=== PATIENT | female | born 1985 | race Caucasian/White ===

== ENCOUNTER 2016-11-26 11:31 | Emergency (ER) | payer SELFPAY ==
[~2016-11-26] VITALS: Ht 182.9 cm; Wt 104.5 kg
[~2016-11-26 11:31] MED LIST: BUSP30TA PO; IBUP800 PO; PENI500T PO; PROZ40CA PO; TRAZ50TA4 PO
[2016-11-26 11:32] VITALS: BP 136/77; PULSE 87; RESP 18; TEMP 97.7; O2SAT 98
[2016-11-26] MEDS ORDERED: PROZ40CA PO (11:58)
[2016-11-26] MEDS ORDERED: ROBA750T PO (12:09)
[2016-11-26] MEDS ORDERED: NAPR500T PO (12:09)
--- NOTE | 2016-11-26 12:10 | PD ---
HPI Chief Complaint: Back/ Neck Pain or Injury Time Seen by Provider: 12:09 Travel History International Travel<30 days: No Contact w/Intl Traveler<30days: No Traveled to known affect area: No History of Present Illness HPI 31-year-old female presents to the emergency department for evaluation of lower back pain. Patient states that 6 days ago she was attempting to hang up a heavy mirror on the wall of her office within the mirror started to slide and fall and she bent to catch it. States that since this occurred she has had pain in her right lower back with tightness in her left lower back. Describes it as a sharp pain. Pain is aggravated with movement. Improved with lying flat. States she has tried topical analgesics, heating pad, stretches and massage without improvement of symptoms. Denies fever, chills, nausea, vomiting , numbness or tingling, weakness, saddle anesthesia, bowel or bladder incontinence. Denies , last menstrual period was 3 weeks ago. PFSH Past Medical History Hx Anticoagulant Therapy: No Anxiety: Yes Depression: Yes Cardiovascular Problems: No Chemotherapy: No Cerebrovascular Accident: No Diabetes: No Diminished Hearing: No Musculoskeletal: Yes (2 HERNIATED DISCS) Respiratory: No Tetanus Vaccination: > 5 Years ?: Unknown : 1 Para: 2 Past Surgical History Section: Yes Hysterectomy: No Other Surgery: Yes () Social History Alcohol Use: Yes (OCCASIONALLY) Tobacco Use: Yes (1 PPD) Substance Use: Yes (marijuana) Allergies-Medications (Allergen,Severity, Reaction): Coded Allergies: Monistat 7 (Verified Allergy, Intermediate, Rash, 11/26/16) Reported Meds & Prescriptions Reported Meds & Active Scripts Active Naproxen 500 Mg Tab 500 Mg PO BID 7 Days Robaxin (Methocarbamol) 750 Mg Tab 750 Mg PO QID Reported Prozac (Fluoxetine HCl) 40 Mg Cap 80 Mg PO DAILY Review of Systems Except as stated in HPI: all other systems reviewed are Neg Physical Exam Narrative GENERAL: Well-nourished and well-developed pleasant patient in no acute distress who is nontoxic appearing. SKIN: Warm and dry. HEAD: Normocephalic and atraumatic. EYES: No injection, drainage, or hyphema noted. PERRLA. EOMI. ENT: No nasal drainage noted. Oropharynx is clear. NECK: Supple and the trachea is midline. CARDIOVASCULAR: Regular rate and rhythm. RESPIRATORY: Breath sounds are equal bilaterally with no accessory muscle use, wheezing, rhonchi, or crackles. MUSCULOSKELETAL: No obvious deformities, swelling, cyanosis, or ecchymosis is present throughout the upper and lower extremities. Patient has full range of motion without any signs of neurovascular compromise. Strength 5/5 upper and lower extremities equal bilaterally. SLR positive bilaterally. BACK: Bilateral paraspinal lumbar muscle tenderness. Nontender obvious deformities, midline bony point tenderness, or crepitus noted throughout the thoracic and lumbar vertebrae. NEUROLOGICAL: Awake, alert, and oriented. Normal speech and gait. Cranial nerves are grossly intact. Data Data Last Documented VS Vital Signs Date Time Temp Pulse Resp B/P Pulse Ox O2 Delivery O2 Flow Rate FiO2 11/26/16 11:32 97.7 87 18 136/77 98 Orders Ketorolac Inj (Toradol Inj) (11/26/16 12:15) Orphenadrine Inj (Norflex Inj) (11/26/16 12:15) MDM Medical Decision Making Medical Screen Exam Complete: Yes Emergency Medical Condition: Yes Differential Diagnosis Muscle strain versus muscle spasm versus discogenic pain versus herniated disc Narrative Course 31-year-old female presents to the emergency department for evaluation of low back pain for 6 days. Patient is afebrile, vital signs are stable. The patient bent to catch a mirror which is how she injured her back. She has no midline bony point tenderness and no focal neurologic deficits. Therefore I feel no imaging is indicated at this time. This is a muscle strain. Patient will be treated with Toradol 60 mg IM and Norflex 60 mg IM here in the ED and she'll be discharged with NSAIDs and muscle relaxers. Advised follow-up with her PCP. Patient verbalizes understanding and agreement with treatment plan. Diagnosis Primary Impression: Acute low back pain Qualified Code: M54.5 - Acute bilateral low back pain without sciatica Patient Instructions: Acute Low Back Pain (ED), General Instructions Additional Instructions: Take medications as prescribed with food and a full glass of water. Do not take Robaxin with alcohol or while driving. Follow-up with your Primary Care Physician. Return to the ED for any acute worsening of symptoms. Med/Other Pt SpecificInfo: Prescription(s) given Scripts Naproxen 500 Mg [id number] Mg PO BID 7 Days Ref 0 Prov:Nii Tucker MD 11/26/16 Methocarbamol (Robaxin)750 Mg [id number] Mg PO QID #30 TAB Ref 0 Prov:iNi Tucker MD 11/26/16 Disposition: 01 DISCHARGE HOME Condition: Stable Macarena Kaur Nov 26, 2016 12:10
[2016-11-26] MEDS ORDERED: ORPHENADRINE INJ 60 MG/2 ML AMP IM ONE (12:15)
[2016-11-26] MEDS ORDERED: KETOROLAC TROMETHAMINE 60 MG/2 ML (IM) VIAL IM ONE (12:15)
== END 2016-11-26 12:31 | disposition home or self-care (01) ==
LOC: NEPB 11:31
DX: M54.5 Low back pain (principal); F32.9 Major depressive disorder, single episode, unspecified
CPT/HCPCS: 96372; 99283; J1885; J2360

== ENCOUNTER 2017-02-10 17:27 | Emergency (ER) | payer SELFPAY ==
[~2017-02-10] VITALS: Ht 182.9 cm; Wt 107.0 kg
[~2017-02-10 17:27] MED LIST changes: -BUSP30TA PO; -IBUP800 PO; +NAPR500T PO; -PENI500T PO; +ROBA750T PO; -TRAZ50TA4 PO
[2017-02-10 17:28] VITALS: BP 136/82; PULSE 88; RESP 20; TEMP 98.4; O2SAT 97
== END 2017-02-10 20:30 | disposition left against medical advice (07) ==
LOC: NED 17:27
DX: R10.9 Unspecified abdominal pain (principal)
CPT/HCPCS: 99281

== ENCOUNTER 2017-04-11 19:39 | Emergency (ER) | payer SELFPAY ==
[~2017-04-11] VITALS: Ht 182.9 cm; Wt 107.0 kg
[2017-04-11 19:41] VITALS: BP 172/87; PULSE 77; RESP 16; TEMP 98.3; O2SAT 97
--- NOTE | 2017-04-11 20:00 | PD ---
Physical Exam Date Seen by Provider: April 11, 2017 Time Seen by Provider: 19:57 Narrative 32 yo female that presents to the ED for evaluation of head injury. patient states that she accidentally knock herself on the head and possibly LOC by hitting her head on a Van. This happened today. Has a BECERRA. No other injuries. Vitals sign stable. Patient awaiting bed placement. Data Data Last Documented VS Vital Signs Date Time Temp Pulse Resp B/P Pulse Ox O2 Delivery O2 Flow Rate FiO2 04/11/17 19:48 16 04/11/17 19:41 98.3 77 172/87 97 Room Air [facility] Medical Record Reviewed: Yes Supervised Visit with AMANDA: No Gilberto Simental April 11, 2017 20:00
--- NOTE | 2017-04-11 21:26 | RADRPT ---
EXAM DATE/TIME: 04/11/2017 20:57 [place] COMPARISON: No previous studies available for comparison. INDICATIONS : Trauma, hit head today. RADIATION DOSE: 41.72 CTDIvol (mGy) MEDICAL HISTORY : None SURGICAL HISTORY : section. ENCOUNTER: Initial ACUITY: 1 day PAIN SCALE: 3/10 LOCATION: cranial TECHNIQUE: Multiple contiguous axial images were obtained of the head. Using automated exposure control and adj ustment of the mA and/or kV according to patient size, radiation dose was kept as low as reasonably a chievable to obtain optimal diagnostic quality images. FINDINGS: CEREBRUM: The ventricles are normal for age. No evidence of midline shift, mass lesion, hemorrhage or acute in farction. No extra-axial fluid collections are seen. POSTERIOR FOSSA: The cerebellum and brainstem are intact. The 4th ventricle is midline. The cerebellopontine angle i s unremarkable. EXTRACRANIAL: The visualized portion of the orbits is intact. SKULL: The calvaria is intact. No evidence of skull fracture. CONCLUSION: Normal examination. French Bojorquez Jr., MD on April 11, 2017 at 21:24 Board Certified Radiologist. This report was verified electronically.
[2017-04-11] MEDS ORDERED: ZOFR4TAB3 SL (22:05)
--- NOTE | 2017-04-11 22:05 | PD ---
HPI . Head injury Chief Complaint: Head Injury Time Seen by Provider: 22:01 Travel History International Travel<30 days: No Contact w/Intl Traveler<30days: No Traveled to known affect area: No History of Present Illness HPI Patient presents complaining with headache, nausea and blurred vision. She struck her head 4 days ago and she states that she was getting into a van and hit her head on the door frame of the hand. She is pretty sure that she had a loss of consciousness. She has had symptoms of headache, nausea and blurred vision since that time. Does have waxed and waned. She states that the headache is really not very bad. She is taking Tylenol with some relief. She states that her family was very concerned and insisted that she come to the hospital for evaluation. PFSH Past Medical History Hx Anticoagulant Therapy: No Anxiety: Yes Depression: Yes Cardiovascular Problems: No Chemotherapy: No Cerebrovascular Accident: No Diabetes: No Diminished Hearing: No Musculoskeletal: Yes (2 HERNIATED DISCS) Respiratory: No Tetanus Vaccination: > 5 Years Influenza Vaccination: No ?: Not LMP: 26 DAYS AGO : 1 Para: 2 Past Surgical History Section: Yes Hysterectomy: No Other Surgery: Yes () Social History Alcohol Use: Yes (OCCASIONALLY) Tobacco Use: Yes (1 PPD) Substance Use: Yes (marijuana) Allergies-Medications (Allergen,Severity, Reaction): Coded Allergies: Monistat 7 (Verified Allergy, Intermediate, Rash, 04/11/17) Reported Meds & Prescriptions Reported Meds & Active Scripts Active Naproxen 500 Mg Tab 500 Mg PO BID 7 Days Robaxin (Methocarbamol) 750 Mg Tab 750 Mg PO QID Reported Prozac (Fluoxetine HCl) 40 Mg Cap 80 Mg PO DAILY Review of Systems Except as stated in HPI: all other systems reviewed are Neg Eyes: Positive: Blurred Vision HENT: Positive: Headaches Gastrointestinal: Positive: Nausea Physical Exam Narrative GENERAL: Awake and alert and in no acute distress. SKIN: Warm and dry. HEAD: Atraumatic. Normocephalic. EYES: Pupils equal and round. Extraocular movements are intact. Pupils are reactive to light. NECK: Trachea midline. Neck is nontender. CARDIOVASCULAR: Regular rate and rhythm. RESPIRATORY: No accessory muscle use. MUSCULOSKELETAL: No obvious deformities. No edema. NEUROLOGICAL: Awake and alert. No obvious cranial nerve deficits. Motor grossly within normal limits. Normal speech. PSYCHIATRIC: Appropriate mood and affect; insight and judgment normal. Data Data Last Documented VS Vital Signs Date Time Temp Pulse Resp B/P Pulse Ox O2 Delivery O2 Flow Rate FiO2 04/11/17 19:48 16 04/11/17 19:41 98.3 77 172/[address] Brain W/O Iv Contrast(Rout) (04/11/17 20:31) MDM Medical Decision Making Medical Screen Exam Complete: Yes Emergency Medical Condition: Yes Differential Diagnosis My differential diagnosis of head trauma includes but is not limited to scalp contusion, concussion, intracerebral hemorrhage. Narrative Course Patient presents with signs and symptoms compatible with a concussion. Her head CT is negative. Diagnosis Primary Impression: Concussion Qualified Code: S06.0X1A - Concussion, with LOC of 30 min or less, initial encounter Patient Instructions: Concussion (DC), General Instructions Med/Other Pt SpecificInfo: Prescription(s) given Scripts Ondansetron Odt (Zofran Odt)4 Mg Tab4 Mg SL Q6HR PRN (Nausea/Vomiting) #30 TAB Ref 0 Prov:Guillermina Gutierrez MD 04/11/17 Disposition: 01 DISCHARGE HOME Condition: Stable Guillermina Gutierrez MD April 11, 2017 22:05
== END 2017-04-11 22:13 | disposition home or self-care (01) ==
LOC: NEPD 19:39
DX: S06.0X1A Concussion with loss of consciousness of 30 minutes or less, initial encounter (principal); R11.0 Nausea; H53.8 Other visual disturbances; F17.200 Nicotine dependence, unspecified, uncomplicated; Z86.59 Personal history of other mental and behavioral disorders; Z87.39 Personal history of other diseases of the musculoskeletal system and connective tissue; W22.09XA Striking against other stationary object, initial encounter
CPT/HCPCS: 70450; 99284

== ENCOUNTER 2018-02-23 14:53 | Emergency (ER) | payer BC ==
[~2018-02-23] VITALS: Ht 182.9 cm; Wt 100.0 kg
[~2018-02-23 14:53] MED LIST changes: -NAPR500T PO; +NAPR500T2 PO; +ZOFR4TAB3 SL
[2018-02-23 14:59] VITALS: BP 151/81; PULSE 88; RESP 16; TEMP 98.4; O2SAT 98
[2018-02-23] MEDS ORDERED: LITH300T PO (16:02)
[2018-02-23] MEDS ORDERED: BUSP30TA PO (16:02)
[2018-02-23] MEDS ORDERED: STRA80CA PO (16:02)
[2018-02-23] MEDS ORDERED: TRAZ100T10 PO (16:02)
[2018-02-23] MEDS ORDERED: NEUR800T PO (16:02)
--- NOTE | 2018-02-23 16:08 | PD ---
HPI Chief Complaint: Psychiatric Symptoms Time Seen by Provider: 15:51 Travel History International Travel<30 days: No Contact w/Intl Traveler<30days: No Traveled to known affect area: No History of Present Illness HPI 32-year-old female with history of bipolar disorder, presents emergency department stating she "feels out of control". She states that all of her buttons have been pushed today. She denies suicidal or homicidal ideation but feels that she needs to be seen. She denies recent medical issues. She does take lithium, but has not ever had a level checked. She states she has been compliant with her meds, except for Strattera which is too expensive. She is allergic to miconazole. PFSH Past Medical History Hx Anticoagulant Therapy: No ADHD: Yes Bipolar Disorder: Yes Anxiety: Yes Depression: Yes Cardiovascular Problems: No Chemotherapy: No Cerebrovascular Accident: No Diabetes: No Diminished Hearing: No Musculoskeletal: Yes (2 HERNIATED DISCS) Respiratory: No Immunizations Current: Yes ?: Not LMP: FEBRUARY 2018 : 1 Para: 2 Past Surgical History Section: Yes Hysterectomy: No Other Surgery: Yes () Social History Alcohol Use: Yes (OCCASIONALLY) Tobacco Use: No Substance Use: Yes (marijuana) Allergies-Medications (Allergen,Severity, Reaction): Coded Allergies: miconazole (Verified Allergy, Intermediate, Rash, 02/23/18) Reported Meds & Prescriptions Reported Meds & Active Scripts Active Reported Trazodone (Trazodone HCl) 100 Mg Tablet 100 Mg PO HS Strattera (Atomoxetine) 80 Mg Cap 80 Mg PO DAILY [place] Carbonate ER ([place] Carbonate) 300 Mg Tab 300 Mg PO DAILY Buspirone (Buspirone HCl) 30 Mg Tab 30 Mg PO BID Neurontin (Gabapentin) 800 Mg Tab 900 Mg PO DAILY Prozac (Fluoxetine HCl) 40 Mg Cap 60 Mg PO DAILY Review of Systems Except as stated in HPI: all other systems reviewed are Neg General / Constitutional: No: Fever Eyes: No: Visual changes HENT: No: Headaches Cardiovascular: No: Chest Pain or Discomfort Respiratory: No: Shortness of Breath Gastrointestinal: No: Abdominal Pain Genitourinary: No: Dysuria Musculoskeletal: No: Pain Skin: No Rash Neurologic: No: Weakness Psychiatric: Positive: Anxiety, Depression, Mood Disorder, No: Suicidal Ideations, Disorder of Thought, Substance Abuse, Homicidal Ideation Endocrine: No: Polydipsia Hematologic/Lymphatic: No: Easy Bruising Physical Exam Narrative GENERAL: Patient appears visibly upset, somewhat tearful. SKIN: Warm and dry. Normal color. Normal turgor. No signs of trauma HEAD: Atraumatic. Normocephalic. EYES: Pupils equal and round. No scleral icterus. No injection or drainage. ENT: No nasal bleeding or discharge. Mucous membranes pink and moist. Pharynx is clear. Airways patent. NECK: Trachea midline. Supple nontender. CARDIOVASCULAR: Regular rate and rhythm. RESPIRATORY: No accessory muscle use. Clear to auscultation. Breath sounds equal bilaterally. GASTROINTESTINAL: Abdomen soft, non-tender, nondistended. Hepatic and splenic margins not palpable. MUSCULOSKELETAL: Extremities without clubbing, cyanosis, or edema. No obvious deformities. NEUROLOGICAL: Awake and alert. No obvious cranial nerve deficits. Motor grossly within normal limits. Five out of 5 muscle strength in the arms and legs. Normal speech. Data Data Last Documented VS Vital Signs Date Time Temp Pulse Resp B/P (MAP) Pulse Ox O2 Delivery O2 Flow Rate FiO2 02/23/18 14:59 98.4 88 16 151/81 (104) 98 Orders Orders Complete Blood Count With Diff (02/23/18 16:03) Comprehensive Metabolic Panel (02/23/18 16:03) Thyroid Stimulating Hormone (02/23/18 16:03) Urinalysis - C+S If Indicated (02/23/18 16:03) Ed Urine Pregnancytest Poc (02/23/18 16:03) Psych Screen (02/23/18 16:03) [place] (Li) (02/23/18 16:03) Drug Screen, Random Urine (02/23/18 16:03) Alcohol (Ethanol) (02/23/18 16:03) Lorazepam (Ativan) (02/23/18 16:15) [facility] Medical Decision Making Medical Screen Exam Complete: Yes Emergency Medical Condition: Yes Medical Record Reviewed: Yes Differential Diagnosis Bipolar disorder. Depression. Mood disorder. Anger management issues. Narrative Course Patient appears medically stable at time of exam. Psychiatric labs ordered per protocol in addition to urine , and lithium level. Patient is given lorazepam 1 mg p.o. now. Patient is medically clear for psychiatric evaluation. Psych screen is ordered. Condition: Stable Fadi Leiva Feb 23, 2018 16:08
[2018-02-23] MEDS ORDERED: LORazepam 1 MG TAB PO ONE (16:15)
[2018-02-23 16:57] LABS: AUTOMATED NEUTROPHIL # 7.2 TH/MM3 (1.8-7.7); BASOPHIL % 0.4 % (0.0-2.0); EOSINOPHIL # 0.5 TH/MM3 (0-0.4); EOSINOPHIL % 4.6 % (0.0-4.0); HEMATOCRIT 37.3 % (35.0-46.0); HEMOGLOBIN 13.3 GM/DL (11.6-15.3); LYMPH % 19.5 % (9.0-44.0); MEAN CELL VOLUME 88.4 FL (80.0-100.0); MEAN CORPUSCULAR HEMOGLOBIN 31.5 PG (27.0-34.0); MEAN CORPUSCULAR HGB CONC 35.6 % (32.0-36.0); MEAN PLATELET VOLUME 9.6 FL (7.0-11.0); MONO % 7.1 % (0.0-8.0); MONOCYTE # 0.7 TH/MM3 (0-0.9); NEUT % 68.4 % (16.0-70.0); PLATELET COUNT 284 TH/MM3 (150-450); RED BLOOD COUNT 4.22 MIL/MM3 (4.00-5.30); RED CELL DISTRIBUTION WIDTH 12.6 % (11.6-17.2); WHITE BLOOD COUNT 10.5 TH/MM3 (4.0-11.0)
[2018-02-23 17:11] LABS: ALBUMIN 4.2 GM/DL (3.4-5.0); AST (GOT) 18 U/L (15-37); BICARBONATE 26.5 MEQ/L (21.0-32.0); BLOOD UREA NITROGEN 11 MG/DL (7-18); CHLORIDE 108 MEQ/L (98-107); CREATININE 0.73 MG/DL (0.50-1.00); GLOMERULAR FILTRATION RATE 93 ML/MIN (>89); GLUCOSE,RANDOM 84 MG/DL (74-106); SODIUM (NA) 140 MEQ/L (136-145)
[2018-02-23 17:12] LABS: ALT (GPT) 28 U/L (10-53)
[2018-02-23 17:22] LABS: ALKALINE PHOSPHATASE 56 U/L (45-117); TOTAL BILIRUBIN ADULT 0.7 MG/DL (0.2-1.0); TOTAL PROTEIN 7.2 GM/DL (6.4-8.2)
--- NOTE | 2018-02-23 20:14 | PD ---
Data Data Last Documented VS Vital Signs Date Time Temp Pulse Resp B/P (MAP) Pulse Ox O2 Delivery O2 Flow Rate FiO2 02/23/18 14:59 98.4 88 16 151/81 (104) 98 Orders Orders Complete Blood Count With Diff (02/23/18 16:03) Comprehensive Metabolic Panel (02/23/18 16:03) Thyroid Stimulating Hormone (02/23/18 16:03) Urinalysis - C+S If Indicated (02/23/18 16:03) Ed Urine Pregnancytest Poc (02/23/18 16:03) Psych Screen (02/23/18 16:03) [place] (Li) (02/23/18 16:03) Drug Screen, Random Urine (02/23/18 16:03) Alcohol (Ethanol) (02/23/18 16:03) Lorazepam (Ativan) (02/23/18 16:15) Labs Laboratory Tests Test 02/23/18 16:10 02/23/18 16:20 Urine Opiates Screen POS Urine Barbiturates Screen NEG Urine Amphetamines Screen NEG Urine Benzodiazepines Screen NEG Urine Cocaine Screen NEG Urine Cannabinoids Screen POS White Blood Count 10.5 TH/MM3 Red Blood Count 4.22 MIL/MM3 Hemoglobin 13.3 GM/DL Hematocrit 37.3 % Mean Corpuscular Volume 88.4 FL Mean Corpuscular Hemoglobin 31.5 PG Mean Corpuscular Hemoglobin Concent 35.6 % Red Cell Distribution Width 12.6 % Platelet Count 284 TH/MM3 Mean Platelet Volume 9.6 FL Neutrophils (%) (Auto) 68.4 % Lymphocytes (%) (Auto) 19.5 % Monocytes (%) (Auto) 7.1 % Eosinophils (%) (Auto) 4.6 % Basophils (%) (Auto) 0.4 % Neutrophils # (Auto) 7.2 TH/MM3 Lymphocytes # (Auto) 2.0 TH/MM3 Monocytes # (Auto) 0.7 TH/MM3 Eosinophils # (Auto) 0.5 TH/MM3 Basophils # (Auto) 0.0 TH/MM3 CBC Comment DIFF FINAL Differential Comment Blood Urea Nitrogen 11 MG/DL Creatinine 0.73 MG/DL Random Glucose 84 MG/DL Total Protein 7.2 GM/DL Albumin 4.2 GM/DL Calcium Level 9.0 MG/DL Alkaline Phosphatase 56 U/L Aspartate Amino Transf (AST/SGOT) 18 U/L Alanine Aminotransferase (ALT/SGPT) 28 U/L Total Bilirubin 0.7 MG/DL Sodium Level 140 MEQ/L Potassium Level 3.7 MEQ/L Chloride Level 108 MEQ/L Carbon Dioxide Level 26.5 MEQ/L Anion Gap 6 MEQ/L Estimat Glomerular Filtration Rate 93 ML/MIN Thyroid Stimulating Hormone 3rd Gen 1.140 uIU/ML [place] Level 0.1 MEQ/L Ethyl Alcohol Level LESS THAN 3 MG/DL MDM Supervised Visit with AMANDA: Yes Narrative Course I, Dr. Lanier, have reviewed the advance practice practitioner's documentation and am in agreement, met with the patient face to face, made the diagnosis, and the medical decision making was done by me. *My assessment and Findings: The nurse asked me to come evaluate this patient. She is decided that she did not want to stay for psychiatric evaluation and wanted to leave. She did come voluntary. She denies any suicidal ideation to me and to the same to YORDAN Aponte earlier. She is able to hold a rational conversation. She does seem anxious. However I do not think she is a danger to herself. There is no indication of that. Ironically she waited all this time until there is now a psychiatric J pot bed available for but she refuses and is leaving. We discussed her medical workup. She does have a very low lithium level of 0.1. She reports compliance. I advised her to follow-up with her physician and return if she changes her mind or worsens Diagnosis Primary Impression: Bipolar 1 disorder with moderate haley Additional Impression: Long-term current use of lithium Additional Instruction: The patient was advised to follow up with their physician and return if they worsen. Med/Other Pt SpecificInfo: Other Disposition: 01 DISCHARGE HOME Condition: Stable Cristopher Lanier MD Feb 23, 2018 20:13
[2018-02-24 01:23] LABS: BILIRUBIN, URINE NEG (NEG); BLOOD, URINE NEG (NEG); GLUCOSE,URINE NEG (NEG); KETONE, URINE NEG (NEG); MUCUS URINE FEW /lpf (OCC); NITRITE,URINE NEG (NEG); SQUAMOUS EPITHELIAL CELL URINE 4 /hpf (0-5); URINE COLOR YELLOW (YELLW/STRAW); URINE LEUKOCYTE ESTERASE NEG (NEG)
== END 2018-02-23 20:20 | disposition home or self-care (01) ==
LOC: NEPD 14:53
DX: F31.9 Bipolar disorder, unspecified (principal); F12.90 Cannabis use, unspecified, uncomplicated; Z79.899 Other long term (current) drug therapy
CPT/HCPCS: 80053; 80178; 80307; 81001; 84443; 84703; 85025; 99283